=== PATIENT | female | born 1985 | race Caucasian/White ===

== ENCOUNTER 2019-01-19 17:50 | Emergency (ER) | payer MEDICAID | END 2019-01-19 19:24 | disposition home or self-care (01) | LOC: E/R 19:24 | DX: O99.89 Other specified diseases and conditions complicating pregnancy, childbirth and the puerperium (principal); M79.601 Pain in right arm; O26.892 Other specified pregnancy related conditions, second trimester; R10.2 Pelvic and perineal pain; Z3A.18 18 weeks gestation of pregnancy | CPT/HCPCS: 76805; 99284-25 ==